=== PATIENT | male | born 1940 | race Hispanic/Latino ===

== ENCOUNTER 2024-02-12 14:00 | Emergency (ER) | payer OTHER ==
--- NOTE | 2024-02-12 14:42 | RAD REPORT ---
EXAM DESCRIPTION: RAD - Chest Pa And Lat (2 Views) - 02/12/2024 2:36 pm CLINICAL HISTORY: Congestion;Cough Chest pain. COMPARISON: No comparisons FINDINGS: The lungs are clear. The heart is normal in size. No displaced fractures. IMPRESSION: No acute or concerning finding suspected. The USPSTF recommends annual screening for lung cancer with low-dose CT (LDCT) in adults aged 50 to 80 years who have a 20 pack-year smoking history and currently smoke or have quit within the past 15 years.
[2024-02-12 15:18] LABS: INFLUENZA A NAA NEGATIVE (NEGATIVE); RESPIRATORY SYNCYTIAL VIR NAA NEGATIVE (NEGATIVE)
[2024-02-12 15:42] LABS: SARS-COV-2 RT PCR POSITIVE (NEGATIVE)
--- NOTE | 2024-02-12 15:42 | EDPHYS ---
Physician Documentation [facility] Name: Jimmy Mary Age: 83 yrs Sex: Male : 1940 Arrival Date: 02/12/2024 Time: 14:00 Bed 18 Private MD: ED Physician Ernie Wells HPI: 02/11 14:16 This 83 yrs old Male presents to ER via Ambulatory with complaints of Flu Symptoms. sb4 14:16 cough and congestion x 1 week but states he feels fine. wants to be checked out because sb4 his soon is here too with similar symptoms. no chest pain, sob, GI symptoms. Historical: - Allergies: 14:11 PENICILLINS; db - PMHx: 14:11 None; db - Immunization history:: Adult Immunizations unknown. - Infectious Disease History:: Denies. - Social history:: Smoking status: Patient reports the use of cigarette tobacco products, smokes one-half pack cigarettes per day. ROS: 14:16 Constitutional: Negative for fever, chills, and weight loss, sb4 14:16 ENT: Positive for sinus congestion, 14:16 Respiratory: Positive for cough, 14:16 All other systems are negative, Exam: 14:16 Constitutional: This is a well developed, well nourished patient who is awake, alert, sb4 and in no acute distress. Head/Face: Normocephalic, atraumatic. Eyes: Extra-ocular motions intact. Periorbital areas with no swelling, redness, or edema. ENT: Mucous membranes moist. Cardiovascular: Regular rate and rhythm with a normal S1 and S2. Respiratory: Lungs have equal breath sounds bilaterally, clear to auscultation and percussion. No rales, rhonchi or wheezes noted. No increased work of breathing, no retractions or nasal flaring. Abdomen/GI: Soft, non-tender, no distension. Skin: Warm, dry with normal turgor. Normal color with no rashes, no lesions, and no evidence of cellulitis. MS/ Extremity: Pulses equal, no cyanosis. Neurovascular intact. Full, normal range of motion. Vital Signs: 14:08 BP 134 / 80; Pulse 66; Resp 20; Temp 98.2; Pulse Ox 88% on R/A; Weight 58.97 kg; Height db 5 ft. 6 in. ; 15:14 BP 130 / 69; Pulse 87; Resp 18; Pulse Ox 98% ; nj1 14:08 Body Mass Index 20.98 (58.97 kg, 167.64 cm) db MDM: 14:12 Patient medically screened. sb4 15:20 Data reviewed: vital signs, nurses notes, lab test result(s), radiologic studies, and sb4 as a result, I will discharge patient. Counseling: I had a detailed discussion with the patient and/or guardian regarding the historical points, exam findings, and any diagnostic results supporting the discharge/admit diagnosis, lab results, radiology results, to return to the emergency department if symptoms worsen or persist or if there are any questions or concerns that arise at home. 02/11 14:13 Order name: COVID-19/FLU A+B/RSV; Complete Time: 15:45 sb4 02/11 14:13 Order name: Chest Pa And Lat (2 Views) XRAY; Complete Time: 14:43 sb4 Administered Medications: No medications were administered Disposition: 16:18 Co-signature as Attending Physician, Ernie Wells MD I reviewed the patient's care rt provided by the Advanced Practice Provider and agree with the diagnosis and treatment plan. Disposition Summary: 02/12/24 15:42 Discharge Ordered Notes: Location: Home sb4 Problem: new sb4 Symptoms: are unchanged sb4 Condition: Stable sb4 Diagnosis - COVID-19 sb4 - Viral infection, unspecified sb4 Followup: sb4 - With: Emergency Department - When: As needed - Reason: Trouble breathing, Worsening of condition Discharge Instructions: - Discharge Summary Sheet sb4 - COVID-19: What to Do If You Are Sick - [facility] (12/04/2021) sb4 Forms: - Patient Portal Instructions sb4 - Leadership Thank You Letter sb4 Prescriptions: - Paxlovid 300 mg (150 mg x 2)-100 mg Oral Tablet, Dose Pack - take 1 dose pack ORAL route per package directions; 1 Pack; Refills: 0, Product sb4 Selection Permitted Signatures: Dispatcher [employer] Arina Aleman RN RN Beatriz Broderick PA-C PA-C sb4 Ernie Wells MD MD rt Corrections: (The following items were deleted from the chart) 14:11 14:11 Allergies: No Known Allergies; db db
--- NOTE | 2024-02-12 15:42 | ER ---
Nurse's Notes [facility] Name: Jimmy Mary Age: 83 yrs Sex: Male : 1940 Arrival Date: 02/12/2024 Time: 14:00 Bed 18 Private MD: Diagnosis: COVID-19;Viral infection, unspecified Presentation: 02/11 14:08 Chief complaint: COUGH AND CONGESTION X 1 WEEK. CHECKED IN BECAUSE SON HAS BEEN HAVING db SAME SYMPTOMS. DENIES CHEST PAIN. Coronavirus screen: Client denies travel out of the [place] in the last 14 days. At this time, the client does not indicate any symptoms associated with coronavirus-19. Ebola Screen: Patient negative for fever greater than or equal to 101.5 degrees Fahrenheit, and additional compatible Ebola Virus Disease symptoms Patient denies exposure to infectious person. Patient denies travel to an Ebola-affected area in the 21 days before illness onset. No symptoms or risks identified at this time. Initial Sepsis Screen: Does the patient meet any 2 criteria? No. Patient's initial sepsis screen is negative. Does the patient have a suspected source of infection? No. Patient's initial sepsis screen is negative. Risk Assessment: Do you want to hurt yourself or someone else? Patient reports no desire to harm self or others. Onset of symptoms was February 12, 2024. 14:08 Method Of Arrival: Ambulatory db 14:08 Acuity: EMIGDIO 3 db Triage Assessment: 14:11 General: Appears in no apparent distress. comfortable, Behavior is calm, cooperative. db Pain: Denies pain. Neuro: Level of Consciousness is awake, alert, obeys commands, Oriented to person, place, time, situation. Cardiovascular: Denies chest pain. Respiratory: Reports cough that is Airway is patent Respiratory effort is even, unlabored, Respiratory pattern is regular, symmetrical, Denies shortness of breath. Historical: - Allergies: 14:11 PENICILLINS; db - PMHx: 14:11 None; db - Immunization history:: Adult Immunizations unknown. - Infectious Disease History:: Denies. - Social history:: Smoking status: Patient reports the use of cigarette tobacco products, smokes one-half pack cigarettes per day. Screenin:29 [facility] ED Fall Risk Assessment (Adult) History of falling in the last 3 months, nj1 including since admission No falls in past 3 months (0 pts) Confusion or Disorientation No (0 pts) Intoxicated or Sedated No (0 pts) Impaired Gait No (0 pts) Mobility Assist Device Used No (0 pt) Altered Elimination No (0 pt) Score/Fall Risk Level 0 - 2 = Low Risk Oriented to surroundings, Maintained a safe environment, Hourly rounding (assess needs \T\ fall precautionary measures) done. Abuse screen: Denies threats or abuse. Denies injuries from another. Nutritional screening: No deficits noted. Tuberculosis screening: No symptoms or risk factors identified. Assessment: 14:25 General: Appears in no apparent distress. comfortable, Behavior is calm, cooperative, nj1 appropriate for age. Pain: Denies pain. Neuro: Level of Consciousness is awake, alert, obeys commands, Oriented to person, place, time, situation. 14:25 Cardiovascular: Patient's skin is warm and dry. Respiratory: Airway is patent nj1 Respiratory effort is even, unlabored. 15:14 Reassessment: Patient appears in no apparent distress at this time. Patient and/or nj1 family updated on plan of care and expected duration. Pain level reassessed. Patient is alert, oriented x 3, equal unlabored respirations, skin warm/dry/pink. Vital Signs: 14:08 BP 134 / 80; Pulse 66; Resp 20; Temp 98.2; Pulse Ox 88% on R/A; Weight 58.97 kg; Height db 5 ft. 6 in. ; 15:14 BP 130 / 69; Pulse 87; Resp 18; Pulse Ox 98% ; nj1 14:08 Body Mass Index 20.98 (58.97 kg, 167.64 cm) db ED Course: 14:02 Patient arrived in ED. im 14:04 Beatriz Block PA-C is PHCP. sb4 14:04 Ernie Wells MD is Attending Physician. sb4 14:10 Triage completed. db 14:12 Arm band placed on Patient placed in an exam room. db 14:24 Anh Wilkes, SHANNAN is Primary Nurse. nj1 14:25 Patient has correct armband on for positive identification. Bed in low position. Call nj1 light in reach. Provided Education on: call light, fall precautions. 14:28 COVID-19/FLU A+B/RSV Sent. nj1 14:38 Chest Pa And Lat (2 Views) XRAY In Process Unspecified. EDMS 15:51 No provider procedures requiring assistance completed. Patient did not have IV access bp during this emergency room visit. Administered Medications: No medications were administered Medication: 15:51 VIS not applicable for this client. bp Outcome: 15:42 Discharge ordered by MD. [email or web address] 15:51 Discharged to home ambulatory, with family, bp 15:51 Condition: stable 15:51 Discharge instructions given to patient, family, Instructed on discharge instructions, follow up and referral plans. medication usage, Demonstrated understanding of instructions, follow-up care, medications, Prescriptions given X 1, 15:52 Patient left the ED. bp Signatures: Dispatcher [employer] EDMS Will Akhtar RN RN bp Arina Delacruz RN RN Beatriz Broderick PA-C PAMarkel sb4 Anh Wilkes RN RN nj1 Ann Gil Corrections: (The following items were deleted from the chart) 14:11 14:08 BP 134 / 80; Pulse 66bpm; Resp 20bpm; Pulse Ox 90% RA; Temp 98.2F; 58.97 kg; db Height 5 ft. 6 in.; BMI: 20.9; db 14:11 14:11 Allergies: No Known Allergies; db db
[2024-02-12 15:59] VITALS: BP 130/69; TEMP 98.2; O2SAT 98
== END 2024-02-12 15:52 | disposition home or self-care (01) ==
LOC: ER 14:00
DX: U07.1 COVID-19 (principal); B34.9 Viral infection, unspecified; F17.210 Nicotine dependence, cigarettes, uncomplicated; Z88.0 Allergy status to penicillin
CPT/HCPCS: 0241U; 71046; 99283